=== PATIENT | male | born 1965 | race Caucasian/White ===

== ENCOUNTER → 2016-09-02 | Outpatient (CLI) | payer BC, OTHER ==
[~2016-09-02] VITALS: Ht 180.3 cm; Wt 79.4 kg
[~2016-09-02] MED LIST: GLUCOSAMINE HC500 MG PO; MULTI VITAMIN1 EACH PO
--- NOTE | ~2016-09-02 | HPC ---
[facility] [address] [place] [address] PAIN MANAGEMENT CONSULTATION Name: PRAVEENA CRISTINA Room #: REG [facility] Carolyn.#: [id number] Admission: 09/02/16 Attend Phys: Kian Rubin DO Discharge: Date of : 65 Report #: [id number] THIS REPORT FOR: //name// CC: Sonia Rubin The patient is a very pleasant 41-year-old gentleman, seen in consultation at the request of Dr. Busby for evaluation of pain, neck, right shoulder and arm. The patient notes pain has been present for about 6 weeks or more without antecedent trauma and overuse. Notes it is from the base of the skull down either side, but about 75% of the times on the right side, exacerbated with sleeping and sitting. He gets some relief when he stands. He has tried Aleve [id number] with little efficacy, stretching, walking and TENS unit. Has some weakness in the right arm with use, paresthesia going into index, long and middle finger. Describes continuous, burning, sharp, and stabbing pain, rates anywhere from 9-10 on a 0-10 visual analog scale. Incidentally, he has had similar symptoms in the low back, all treated with epidural injections off and on over the past decade or more. REVIEW OF SYSTEMS: Complete review of systems attached to chart and gone over with the patient. He is , does not smoke, drink alcohol to excess. He enjoyed remarkably good health, a 12 point review of systems is essentially unremarkable. Takes glucosamine and multiple vitamins. Other than axial back issues and lumbar radicular symptoms, he has had one compound fracture in his left foot in 1985 and review of systems is otherwise unremarkable. 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 He has continued to work despite pain. Pain impact score, however, is quite high, averaging 58/60. PHYSICAL EXAMINATION: GENERAL: Reveals a 5 feet 11 inches and 170 pounds gentleman. VITAL SIGNS: Stable, blood pressure is 118/84, pulse 74, and respirations 16. BMI is 24.4 kilograms per meter squared. NEUROLOGIC: Cranial nerves 2-12 are grossly intact. HEENT: Pupils are equal, reactive to light and accommodation. Extraocular muscles are intact. EXTREMITIES: Cervical range of motion is full with positive Lhermitte's radiating to the right arm. Right deltoid and biceps strength is slightly diminished compared to the left. Subjective paresthesia into the thumb, index, and long finger. Negative Tinel's. Deep tendon reflexes are generally preserved. Skin integument is intact, some tenderness in the splenius capitis and trapezius muscles, right greater than left. No discrete trigger points are noted. HEART: Regular rate and rhythm without murmur. LUNGS: Clear to auscultation. [facility] [address] [place] [address] PAIN MANAGEMENT CONSULTATION Name: PRAVEENA CRISTINA Room #: REG SHEILA Resendiz#: [id number] Admission: 09/02/16 Attend Phys: Kian Rubin DO Discharge: Date of : 65 Report #: [id number] ABDOMEN: Unremarkable. NEUROLOGIC: Gait is tandem. Lower extremity strength is preserved. SKIN: Integument is intact. DIAGNOSTIC STUDIES: The only diagnostic study available is an old x-ray of the cervical spine from 07/23/2010. I personally reviewed those images, they are fairly unremarkable, they are starting to lose some height in the inferior cervical basis. ASSESSMENT: 1. Symptomatic cervical radiculopathy with clinical exam having failed conservative therapy. 2. History of lumbar radiculopathy. RECOMMENDATIONS: 1. Continue Aleve cydk-nbn-[id number]. 2. Cervical epidural injection under fluoroscopy today. 3. Follow up in 3-4 weeks for reevaluation, if he has no significant improvement in baseline pain, we will need to get an MRI to ensure they were not overlooking any surgical pathology. Thank you for allowing me to participate in the patient's care. I will keep you abreast of his progress. PROCEDURE: Cervical epidural steroid injection under fluoroscopy. PROCEDURE NOTE: After written and informed consent was obtained including risk of dural puncture, spinal cord trauma, paralysis and increased pain, the patient was taken to the fluoroscopy suite and placed in the prone position, with appropriate abdominal bolstering, neck was flexed, palms under the thighs. Skin was prepped with ChloraPrep. Sterile draping was applied. Skin wheal with 1% Xylocaine was raised. A 22-gauge 3-1/2 inch epidural Tuohy needle was placed via a midline approach at the C7-T1 interspace, advanced under biplanar fluoroscopy using continuous loss of resistance. With appropriate loss of resistance at the expected depth on lateral view, the glass loss of resistance syringe was disconnected. A low volume extension tubing was connected to the needle and a 5 mL syringe. Negative aspiration for cerebrospinal fluid or blood was noted. A 1 mL of Omnipaque was injected which showed spread within the epidural space on biplanar fluoroscopy. This was followed with 80 mg of triamcinolone plus 1 mL of 1.5% preservative Xylocaine. Needle was withdrawn to the interspinous ligament, 0.5 mL of Xylocaine was used to flush the needle. The needle was then completely withdrawn. The area was cleansed. Band-Aid was applied. The patient was allowed to move off the procedure table and ambulated [facility] [address] [place] [address] PAIN MANAGEMENT CONSULTATION Name: PRAVEENA CRISTINA MIREYA Room #: REG CLI Martín#: [id number] Admission: 09/02/16 Attend Phys: Kian Rubin DO Discharge: Date of : 65 Report #: [id number] to the recovery room, monitored for an appropriate period of time, discharged in good and stable condition. By: [id number] Kian Rubin DO /nt
[2016-09-02 13:09] VITALS: BP 118/84
== END ==
LOC: PAIN 07:43
DX: M54.12 Radiculopathy, cervical region (principal)

== ENCOUNTER → 2016-10-04 | Outpatient (CLI) | payer BC, OTHER ==
[~2016-10-04] VITALS: Ht 180.3 cm; Wt 77.6 kg
[~2016-10-04] MED LIST changes: +HYDROCODONE-AP1 EAC6 PO
--- NOTE | ~2016-10-04 | HPC ---
[facility] [place] [address] PAIN MANAGEMENT CONSULTATION Name: PRAVEENA CRISTINA Room #: REG [facility] Martín#: [id number] Admission: 10/04/16 Attend Phys: Kian Rubin DO Discharge: Date of : 65 Report #: [id number] THIS REPORT FOR: //name// CC: Sonia Rubin SUBJECTIVE: The patient is a very pleasant 51-year-old gentleman, prior seen in the pain clinic in consultation on 09/02/2016, diagnosed with symptomatic cervical radiculopathy, given 1 cervical epidural injection at that time. He returns to pain clinic today noting 75% improvement of baseline pain; however, still some radicular symptoms in the neck, right shoulder and arm. Cervical range of motion shows positive Lhermitte's, does show some sharp, continuous, burning pain up to 9 on a 0-10 visual analog scale at its worst, though again ongoing relief continues. He had 90% initially, but about 75% ongoing. ASSESSMENT: Symptomatic cervical radiculopathy by clinical exam and history. RECOMMENDATIONS: 1. Repeat epidural injection under fluoroscopy today. 2. We will order an MRI of the cervical spine. If in 1 week, he still has ongoing radicular symptoms, we will need to take a look and make sure we are not overlooking any surgically correctable pathology. PROCEDURE: Cervical epidural steroid injection under fluoroscopy. PROCEDURE NOTE: After written and informed consent was obtained including risk of dural puncture, spinal cord trauma, paralysis and increased pain, the patient was taken to the fluoroscopy suite and placed in the prone position, with appropriate abdominal bolstering, neck was flexed, palms under the thighs. Skin was prepped with ChloraPrep. Sterile draping was applied. Skin wheal with 1% Xylocaine was raised. A 22-gauge 3-1/2 inch epidural Tuohy needle was placed via a midline approach at the C7-T1 interspace, advanced under biplanar fluoroscopy using continuous loss of resistance. With appropriate loss of resistance at the expected depth on lateral view, the glass loss of resistance syringe was disconnected. A low volume extension tubing was connected to the needle and a 5 mL syringe. Negative aspiration for cerebrospinal fluid or blood was noted. A 1 mL of Omnipaque was injected which showed spread within the epidural space on biplanar fluoroscopy. This was followed with 80 mg of triamcinolone plus 1 mL of 1.5% preservative Xylocaine. Needle was withdrawn to the interspinous ligament, 0.5 mL of Xylocaine was used to flush the needle. The needle was then completely withdrawn. The area was cleansed. Band-Aid was applied. The patient was allowed to move off the procedure table and ambulated [address] [address] PAIN MANAGEMENT CONSULTATION Name: PRAVEENA CRISTINA Room #: REG SHEILA Resendiz#: [id number] Admission: 10/04/16 Attend Phys: Kian Rubin DO Discharge: Date of : 65 Report #: [id number] to the recovery room, monitored for an appropriate period of time, discharged in good and stable condition. <ELECTRONICALLY SIGNED> By: Kian Rubin DO 10/07/16 0657 1554 03 Kian Rubin DO /nt
[2016-10-04 14:13] VITALS: BP 133/77
== END | disposition home or self-care (01) ==
LOC: PAIN 10-03 12:55
DX: M54.12 Radiculopathy, cervical region (principal)

== ENCOUNTER → 2016-10-11 | Outpatient (CLI) | payer BC, OTHER | LOC: MRI 07:19 | DX: M47.892 Other spondylosis, cervical region (principal) ==

== ENCOUNTER → 2017-04-17 | Outpatient (CLI) | payer BC, OTHER ==
[~2017-04-17] VITALS: Ht 180.3 cm; Wt 74.6 kg
[~2017-04-17] MED LIST changes: +ALEVE220 MG PO; +CYMBALTA30 MG PO; +FLEXERIL PO
--- NOTE | ~2017-04-17 | HPC ---
[facility] [address] [employer] [address] PAIN MANAGEMENT CONSULTATION Name: PRAVEENA CRISTINA Room #: REG [facility] Resendiz#: [id number] Admission: 04/17/17 Attend Phys: Kian Rubin DO Discharge: Date of : 65 Report #: [id number] THIS REPORT FOR: //name// CC: Sonia Rubin The patient is a 51-year-old gentleman. He was prior treated for symptomatic cervical radiculopathy. I did 2 cervical epidural injections, in August and September. He was seen in followup in October, having ongoing right shoulder, arm symptoms of paresthesia going into the thumb, index, and long finger. We continued the patient on conservative therapy at that time. I ordered an MRI which was accomplished 10/11/2016. It does note C5-C6 to have bilateral neural foraminal narrowing. C6-C7 similarly shows bilateral neural foraminal narrowing with a slight asymmetric right-sided posterior ridging likely osteophytic with a tiny right paramedian osteophyte complex at C7-T1. The patient returns to pain clinic today, we had a prolonged visit discussing therapeutic options. He actually has 2 discrete issues, he has pain in the right trapezius, deltoid, triceps and somewhat in the distal aspect of the subscapularis. There are knots that occasionally come up and wake patient from pain, exquisite myofascial type pain component. It appears that the paresthesia actually into his thumb, index and long finger, which I had prior thought was a C6-C7 radiculopathy (coming from neural foraminal narrowing at C5-C6 and C6-C7) may actually be more of a carpal tunnel or cubital tunnel symptoms. The patient has pain in the shoulders exacerbated with some movement. Again, it does also wake the patient from sleep. Paresthesia which includes continuous, burning, numbness, tingling in the fingers occasionally is altered with neck position, but this too seems to be exacerbated with activity. PHYSICAL EXAMINATION: Shows a 51-year-old gentleman, BMI is 22.9 kilograms per meter squared. Vital signs stable as noted in the EMR. Subjective pain score is 7-10 on VAS. Cervical range of motion is full with negative Lhermitte's at this time. Does have tenderness and some palpable trigger points in the right trapezius, deltoid, tricep and subscapularis insertion, though the range of motion in the shoulder and arm is adequate. Strength is good. The deep tendon reflexes are preserved. Tinel's is modestly positive on the right. Does have some tenderness over the right lateral epicondyle with a component of "tennis elbow" (medial epicondylitis) seems to be exacerbated with resistance to extension of the right wrist. ASSESSMENT: Cervical radiculopathy by history, component of a myofascial pain in the shoulder girdle and C6 and C7 radiculopathy versus carpal tunnel entrapment, etiology of neuropathic pain. RECOMMENDATIONS: We will refer to Dr. Devorah Ngo for EMG. The patient and his know Dr. Ngo socially. We will also start the patient on low dose [address] [address] PAIN MANAGEMENT CONSULTATION Name: SHARAGASPERSEBPRAVEENA MIREYA Room #: REG [facility] Resendiz#: [id number] Admission: 04/17/17 Attend Phys: Kian Rubin DO Discharge: Date of : 65 Report #: [id number] Cymbalta 30 mg 1 a day for 4 weeks to see if this affects the myofascial pain component. We will renew hydrocodone. The patient uses a 5/325 tablet, I gave him 45 tablets in October. This lasted nearly 5 months. He uses this very infrequently. We will continue Flexeril, he uses this at bedtime on a nondaily basis. Discharged in good and stable condition after a moderately prolonged visit, greater than 25 minutes were spent with the patient. Over 50% of time spent reviewing therapeutic options and counseling the patient. By: [id number] Kian Rubin DO /nt
[2017-04-17 14:39] VITALS: BP 133/74
== END ==
LOC: PAIN 07:18
DX: M54.16 Radiculopathy, lumbar region (principal); M79.1 Myalgia

== ENCOUNTER → 2017-07-24 | Outpatient (CLI) | payer BC, OTHER ==
[~2017-07-24] VITALS: Ht 180.3 cm; Wt 72.9 kg
--- NOTE | ~2017-07-24 | HPC ---
[facility] [place] [address] [place] [address] PAIN MANAGEMENT CONSULTATION Name: PRAVEENA CRISTINA Room #: REG [facility] Martín#: [id number] Admission: 07/24/17 Attend Phys: Kian Rubin DO Discharge: Date of : 65 Report #: [id number] THIS REPORT FOR: //name// CC: Sonia Rubin DATE OF SERVICE: 07/24/2017 The patient is a 51-year-old gentleman seen on 04/17/2017. He had prior been treated for cervical radiculopathy with 2 cervical epidural injections in 08/2016 and 09/2016. Last visit, he was having some ongoing symptoms in the right arm with paresthesia into his thumb and index finger. He also had second discrete pain issue which is myofascial pain with trigger points in the trapezius, deltoid, and triceps (right side) and little bit along the infrascapularis. Returns to pain clinic today. I started him on Cymbalta 30 mg at bedtime. He feels that this medicine is "a homerun". Notes the right side pain has significantly improved. However, recently started have a little bit of muscle spasm in the left trapezius and latissimus dorsi and medial to the left scapularis. I referred him for EMG regarding the paresthesia in the right arm. EMG obtain 05/08/2017 did note right median motor distal latency being prolonged. Possible right C7 radiculopathy. No evidence for median or ulnar neuropathy was noted. The patient notes the radicular symptoms are actually fairly nominal at this point. He is very pleased with the Cymbalta. PHYSICAL EXAMINATION: Shows a 51-year-old gentleman, BMI is 22.4 kg/m2. Vital signs are stable as noted in the EMR. Subjective pain score is 7-10, but all in the left upper back with muscle spasm. Physical range of motion shows cervical range of motion good. Some diffuse tenderness in the splenius capitis and trapezius on the left side. A little bit in the upper thoracic paravertebral muscles. Upper extremity strength, however, is preserved. ASSESSMENT: Myofascial pain, history of cervical radiculopathy, latter symptoms relatively quiescent. RECOMMENDATION: Long discussion with the patient today about therapeutic option. We have elected to continue Cymbalta 30 mg a day with the caveat that I will write a prescription for b.i.d. usage, 60 tablets. We will have him use 2 tablets daily until the left myofascial pain resolves and then have him drop back to 1 a day. If symptoms recur, we will simply continue at 60 mg. Otherwise, continue 30 mg of Cymbalta. I did renew Flexeril 10 mg to be used p.r.n. and hydrocodone 5/325, dispensed 90 tablets. His prior prescription for [address] [address] PAIN MANAGEMENT CONSULTATION Name: JONNIEPRAVEENA MIREYA Room #: REG SHEILA Resendiz#: [id number] Admission: 07/24/17 Attend Phys: Kian Rubin DO Discharge: Date of : 65 Report #: [id number] sixty 5 mg hydrocodone tablets has lasted 4 months. He uses this judiciously. Discharged in good and stable condition. Follow up simply as needed. <ELECTRONICALLY SIGNED> By: Kian Rubin DO 07/25/17 0944 1615 04 Kian Rubin DO /nt
[2017-07-24 13:46] VITALS: BP 130/80
== END ==
LOC: PAIN 07:09
DX: M79.1 Myalgia (principal); M54.12 Radiculopathy, cervical region

== ENCOUNTER → 2017-12-17 | Outpatient (CLI) | payer BC, OTHER ==
[~2017-12-17] VITALS: Ht 180.3 cm; Wt 73.6 kg
[~2017-12-17] MED LIST changes: +BACLOFEN 10MG T10 MG PO; +CYMBALTA60 MG PO
--- NOTE | ~2017-12-17 | HPC ---
[facility] [place] [place] [address] PAIN MANAGEMENT CONSULTATION Name: PRAVEENA CRISTINA Room #: REG [facility] MSalvador.#: [id number] Admission: 12/17/17 Attend Phys: Adrian Rubin DO Discharge: Date of : 65 Report #: [id number] THIS REPORT FOR: //name// CC: Adrian Busby MD DATE OF SERVICE: 12/17/2017 REFERRING PHYSICIAN: Sonia Busby M.D. CHIEF COMPLAINT: Neck pain and bilateral upper extremity pain and paresthesias. HISTORY OF PRESENT ILLNESS: As you know, the patient is a 52-year-old male treated for cervical radiculopathy secondary to changes noted in the cervical region such as the changes at the C7 level. Majority of the findings in the cervical spine are minor. He has been treated with Cymbalta and has had cervical epidural injections, both of which have provided good benefit. He now is experiencing left neck pain after a recent fall. He returns today in followup visit for refills of Canyon for which he takes 2-3 tablets on bad days or sometimes no tablets per day and to adjust for muscle relaxant, he has accessed specifically of our services to provide Valium. He returns to discuss this option. ALLERGIES: No known drug allergies. CURRENT MEDICATIONS: Duloxetine 60 mg once a day, Flexeril 10 mg 3 times a day, hydrocodone 5/325 one tab p.o. q. 6 hours p.r.n. for pain, naproxen 220 mg 3 times a day and glucosamine chondroitin 500 mg 3 times a day. SOCIAL HISTORY: The patient denies tobacco use. Denies IV or illicit drug. Admits to 5 alcoholic beverages per week. He is a global sales manager . He is working, not receiving workmen's compensation, unaccompanied today. IMAGING DATA: No new imaging available. PHYSICAL EXAMINATION: VITAL SIGNS: Blood pressure 108/78, pulse 78 and respiratory rate 19 and unlabored. The patient is 100% on room air. Height 5 feet 11 inches tall, weight 162.2 pounds and BMI calculated 22.6. GENERAL: Well-developed, well-nourished, well-hydrated, 52-year-old male. He appears his stated age. He is placing pain score today, 8/10. HEENT: Normocephalic and atraumatic. Pupils equal, round and reactive to light. Extraocular muscles are intact. EXTREMITIES: Show no clubbing, no cyanosis and no edema. MUSCULOSKELETAL: Upper extremity strength is 5/5, intact to light touch from C5 [facility] [address] [place] [address] PAIN MANAGEMENT CONSULTATION Name: PRAVEENA CRISTINA Room #: REG SHEILA Resendiz#: [id number] Admission: 12/17/17 Attend Phys: Adrian Rubin DO Discharge: Date of : 65 Report #: [id number] through T1 dermatomes. Deep tendon reflexes symmetrical at biceps, brachialis and triceps. There are multiple tender points, no specific trigger points and myofascial symptoms noted throughout the paraspinal musculature of cervical spine. ASSESSMENT: 1. Myofascial pain. 2. Suspected cervical radiculopathy. 3. Displacement of cervical intervertebral disk. 4. Cervical spondylosis. 5. Chronic intractable pain. PLAN: 1. The patient returns today in followup visit requesting refill on medications. He has requested of our services who provided specifically Valium or another benzodiazepine. Advised the patient at this time these medications are not helpful in pain management clinic and will not be provided specifically with concomitant use of opioids. This is an extremely high risk in individuals for overdose and will not be provided. I did advise the muscle spasming medications are available. He is currently on cyclobenzaprine, is not finding much of an effect. I would recommend from here baclofen. If this is ineffective, methocarbamol. Benzodiazepines should not be added to an individual taking opioids. 2. The patient was provided RX of baclofen 10 mg dose 1 tab p.o. t.i.d. and I have given the patient #90. I have advised the patient if the 10 mg dose is not effective, he can do 15 mg 3 times a day or up to 20 mg. I would not recommend it jumped to 20 mg unless he is absolutely needing that level of medication. 3. The patient was provided prescription of Canyon 5/325 one tab p.o. b.i.d. to t.i.d. p.r.n. pain and I have given the patient #90 tablets, no refills. The patient was advised to utilize medication only as directed. He is not to call for early refills or any changes in medication therapy. 4. The patient and I did discuss his reported diagnosis of cervical radiculopathy. I have reviewed the patient's imaging study does not show a significant nerve root impingement or central canal stenosis that would be consistent with his symptoms. I believe his symptoms are more related to myofascial symptoms but further evaluation may be necessary and I would recommend at this point EMG of the upper extremities bilaterally. We will consider this option if his symptoms do not improve. His current pain distribution does not correlate to the findings on his MRI examination. Further evaluation might be necessary. 5. We will see the patient back in followup visit on an as needed basis. <ELECTRONICALLY SIGNED> By: Adrian Rubin DO 12/18/17817 1240 2110 Adrian Rubin DO /nt
[2017-12-17 10:32] VITALS: BP 108/78
== END ==
LOC: PAIN 07:32
DX: M47.812 Spondylosis without myelopathy or radiculopathy, cervical region (principal); M50.223 Other cervical disc displacement at C6-C7 level; G89.4 Chronic pain syndrome; M79.1 Myalgia

== ENCOUNTER → 2018-04-22 | Outpatient (CLI) | payer BC, OTHER ==
[~2018-04-22] VITALS: Ht 167.6 cm; Wt 77.1 kg
--- NOTE | ~2018-04-22 | HPC ---
[facility] [address] [place] [address] PAIN MANAGEMENT CONSULTATION Name: SHARAPRAVEENA SALES MIREYA Room #: REG SHEILA Resendiz#: [id number] Admission: 04/22/18 Attend Phys: Autumn Graf Discharge: Date of : 65 Report #: [id number] THIS REPORT FOR: //name// CC: Autumn Moodyfer Qi DATE OF SERVICE: 04/22/2018 CHIEF COMPLAINT: Neck pain, bilateral upper extremity pain and paresthesias. HISTORY OF PRESENT ILLNESS: This is a very pleasant 52-year-old gentleman who returns to the pain clinic today for discussion regarding his cervical radiculopathy that radiates into his right arm greater than left, been treated with cervical epidurals in the past and most recently Cymbalta. The patient returns today, questions regarding his Cymbalta therapy. He tells me that his pain score is 4 today, which is a very average score for his neck and arm pain. He tells me that he feels like he is very well controlled on his current medication regime. He does take some baclofen when he does have spasms, he is not in need of that medication today. He tells me that is much more beneficial than Flexeril that he had been on in the past. The patient tells me he rarely takes hydrocodone that we had been prescribing for him and is not in need of that medication today either. He was wondering today, has questions about how long he should stay on his Cymbalta versus the benefits of going off it or weaning down to a lower dose. Those were all discussions for him today. ALLERGIES: No known drug allergies. CURRENT MEDICATIONS: Baclofen 10 mg as needed, hydrocodone 5/325 as needed, duloxetine 60 mg daily, naproxen 220 mg as needed, multivitamin daily, glucosamine 500 mg daily. PQRS: The patient has some osteoarthritic changes in his back. Denies rheumatoid arthritis. Height is 5 feet 6 inches, weight is 170, BMI is 27.5. Vital signs: Blood pressure 121/87, pulse is 87, respirations 18, oxygen sat is 96. Pain score is 4/10. Denies dizziness. Does not need help walking or standing. He has not fallen in the last 3 months. He is not on a blood thinner or does not take any hypertension medicines. His opioid therapy is greater than 6 weeks; therefore, an opioid signed contract is on the chart. His risk assessment tool is low and his functional assessment is 58/70. The patient denies recreational drug use. Does not smoke and does not drink alcohol. PHYSICAL EXAMINATION: GENERAL: This is a well-developed, well-nourished, well-hydrated 52-year-old gentleman who appears his stated age. He is placing a pain score today of 4/10. HEENT: Normocephalic, atraumatic. Pupils equal, round and reactive to light. Extraocular muscles are intact. [address] [address] PAIN MANAGEMENT CONSULTATION Name: PRAVEENA CRISTINA Room #: REG SHEILA Resendiz#: [id number] Admission: 04/22/18 Attend Phys: Autumn Graf Discharge: Date of : 65 Report #: [id number] EXTREMITIES: No clubbing, no cyanosis, no edema. MUSCULOSKELETAL: Upper extremity strength judged to be 5/5, intact to light touch from C5 through T1 dermatomes. Complains of mild tenderness, points in his right upper arm and upper neck in the cervical region. ASSESSMENT: 1. Myofascial pain. 2. Suspected cervical radiculopathy. 3. Displacement of cervical intervertebral disk. 4. Cervical spondylosis. 5. Chronic intractable pain. We reviewed the fact that opiate medications are being used to provide analgesia adequate to support activities of daily living, not attempting to achieve a specific pain score on the 0-10 Visual Analog Scale. The current opiate medications are providing sufficient analgesia to allow the patient to participate in activities of daily living. The patient is not exhibiting any aberrant behavior suggestive of drug diversion. The patient is not having any adverse reactions to medications. The patient is not suffering from daytime somnolence or mental acuity changes. The patient is managing opiate-induced constipation with appropriate wlqa-oio-hcjvlql agents and dietary considerations. The patient was counseled on concern for caution with operating a motor vehicle while using opiate medications. A physical exam was performed and the patient's functional status was evaluated. All patients with back pain were advised against the bed rest greater than 4 days and were advised to return to normal activities. Pain score assessment was noted and the treatment plan was reviewed with the patient. All current medications, both prescribed and OTC were reviewed and reconciled on the electronic medical record. Tobacco screening was accomplished and smoking cessation was advised when indicated. BMI was noted and diet/exercise modification was recommended for all patients following outside normal parameters. I reviewed with the patient today their responsibilities to safeguard prescription medications, reviewed their responsibility to utilize medications only as prescribed by the physician. They are to seek and receive pain medications only from 1 physician group ( [facility]). They are to use 1 pharmacy and keep the clinic informed if they change pharmacies. Their responsibilities include making followup visits in a timely fashion and to avoid abrupt discontinuation of medication usage. Their responsibilities further include bringing their medications (bottles from the pharmacy with residual pills) to the visit for possible confirmation of pill counts and the patient understands it is their responsibility to submit to random drug screens to ensure both that the medications prescribed are present, and that no other controlled substances are present. All prescriptions provided today were [facility] [address] [place] [address] PAIN MANAGEMENT CONSULTATION Name: PRAVEENA CRISTINA Room #: REG Beck Resendiz#: [id number] Admission: 04/22/18 Attend Phys: Autumn Graf Discharge: Date of : 65 Report #: [id number] generated electronically. PLAN: 1. The patient returns today for followup visit to discuss medication managements. He tells me that he had recently learned that Cymbalta is an antidepressant. He was not aware that he was taking a antidepressant. He tells me that he thought the Cymbalta was for his nerve pain in his neck and arm. I did discuss with him about the Cymbalta having those properties and it is approved for both reasons, that is why Dr. Kian Rubin had started him on that. The patient finds that it is very helpful, had showed up in the clinic on Friday needing a refill of his medications. We did not want him to abruptly stop this, so medicines were called in at that point. The patient tells me he has noticed that when he does not take it, that he does have an increase in his pain in neck and arm. The patient feels like his baclofen is very beneficial and rarely takes hydrocodone. He was wondering about decreasing to 30 mg of Cymbalta in the future if need be. We did discuss weaning parameters telling him that if his pain is consistent 2 or below, that he could call us, we would call in 30 mg tablets of Cymbalta to see how he does with that. If his pain returned, then he would go back to the 60s. If it is continued at the low level, then he would take 1 tablet every other day and then wean off it, but right now, the patient will stay on the Cymbalta 60 mg daily. 2. The patient does not need any prescriptions refilled today since we called in medicines on 04/17 for him. He will call when needed and I have authorized a refill of his Cymbalta. I explained to him if he needs refill of other medications in the future, he does need to schedule an appointment. The patient is agreeable with this plan of care. The patient will be seen in 3 months or as needed basis. Care given today under the collaboration with Dr. Adrian Rubin. <ELECTRONICALLY SIGNED> By: Autumn Graf 04/23/18 0838 [id number] Autumn Graf /demetria
[2018-04-22 10:00] VITALS: BP 121/87
== END ==
LOC: PAIN 09:22
DX: M79.18 Myalgia, other site (principal); M47.892 Other spondylosis, cervical region; G89.4 Chronic pain syndrome

== ENCOUNTER → 2018-07-06 | Outpatient (CLI) | payer BC, OTHER ==
[~2018-07-06] VITALS: Ht 167.6 cm; Wt 76.1 kg
[2018-07-06 08:53] VITALS: BP 131/90
--- NOTE | 2018-07-06 09:05 | NUR ---
Pain Clinic Assessment: 1. History of Osteoarthritis: NONE History of Rheumatoid Arthritis: NONE 2. Height: 5 ft. 6 in. 167.6 cm. Weight: 167.8 lb. oz. 76.114 kg. Patient's BMI: 27.1 3. Vital Signs: BP: 131/90 Pulse: 78 Resp: 14 Temp: 02 Sat: 97 ECG Mon: 4. Pain Intensity: 5-6 5. Fall Risk: Dizziness: Y Needs help standing or walking: N Fallen in the last 3 months: N Fall risk comments: 6. Patient on Blood Thinner: None 7. History of Hypertension: N 8. Opioid Therapy greater than 6 weeks: Y Opiate Contract Signed: 07/24/17 9. Risk Assessment Tool Provided: 3-low 10. Functional Assessment Tool: 11. Recreational Drug Use: Never Drug Type: Tobacco Use: Never Smoker Tobacco Type: Amount or Packs/day: How Many Years: Alcohol Use: No Frequency: Quant:
--- NOTE | 2018-07-07 08:51 | HPC ---
[facility] [address] [place] [address] PAIN MANAGEMENT CONSULTATION Name: PRAVEENA CRISTINA Room #: REG SHEILA Resendiz#: [id number] Admission: 07/06/18 ������������������ Attend Phys: Autumn Graf Discharge: ������������������ Date of : 65 Report #: [id number] THIS REPORT FOR: //name// CC: Autumn Moodyfer Qi DATE OF SERVICE: 07/06/2018 CHIEF COMPLAINT: Neck pain, bilateral upper extremity pain and paresthesias. HISTORY OF PRESENT ILLNESS: This is a very pleasant 52-year-old gentleman who returns to the pain clinic today for medication refill for his cervical radiculopathy that radiates into his right arm greater than his left, into his thumb. The patient tells me that the Cymbalta is doing quite well. He feels numbness and tingling in his thumb and down his arm when he has not taken his medication. He tells me it is very well controlled as long as he takes his Cymbalta on a daily basis. Occasionally on bad days, he says after he wakes in the morning, he may need a hydrocodone and then later in the day, a baclofen to help control his pain on his bad days. Those days are very few. Hydrocodone script has lasted him about 7 months for 90 pills, so he tells that very sparingly that he uses that. He tells me that he would like a refill today of his Cymbalta. He denies any problems with constipation or daytime sleepiness. ALLERGIES: No known drug allergies. CURRENT LIST OF MEDICATIONS: Baclofen 10 mg p.r.n., hydrocodone 5/325 p.r.n., Cymbalta 60 mg daily, Aleve 220 mg daily, multivitamin daily, glucosamine 500 mg 3 times a day. PQRS: 1. The patient has some arthritic changes in his back. Denies any rheumatoid arthritis. 2. Height is 5 feet 6 inches, weight is 167, BMI is 27. 3. Vital signs: Blood pressure 131/90, pulse is 78, respirations 14, oxygen sat is 97. 4. Pain score 5-6/10. 5. Fall risks: Complains of some dizziness. He denies needing help walking or standing. Has not fallen in the last 3 months. 6. The patient is not on any blood thinners, does not take any meds for hypertension. 7. Opioid therapy is greater than 6 weeks; therefore, an opioid signed contract is on the chart. 8. Risk assessment tool is low. His functional assessment is 37/70. 9. Recreational drug use: He denies. He is not a smoker and does not drink alcohol. [address] [address] PAIN MANAGEMENT CONSULTATION Name: PRAVEENA CRISTINA [id number] Admission: 07/06/18 ������������������ Attend Phys: Autumn Graf Discharge: ������������������ Date of : 65 Report #: [id number] We did check the prescription monitoring system. The patient is filling from Dr. Adrian Rubin. Last fill was 12/18/2017. We will check a drug screen on the patient, though he does take his medicines very sparingly for his narcotics. PHYSICAL EXAMINATION: GENERAL: This is a well-developed, well-nourished, well-hydrated 52-year-old gentleman who appears his stated age, placing his pain score at 5/10 today. HEENT: Normocephalic, atraumatic. Extraocular eye muscles are intact. EXTREMITIES: No clubbing, no cyanosis, no edema. Does complain of slight numbness in his right thumb. Upper extremity strength judged to be 5/5, intact to light touch from C5 through T1. Complains of right shoulder tenderness today. ASSESSMENT: 1. Myofascial pain. 2. Suspected cervical radiculopathy. 3. Displacement of cervical intervertebral disk. 4. Cervical spondylosis. 5. Chronic intractable pain. We reviewed the fact that opiate medications are being used to provide analgesia adequate to support activities of daily living, not attempting to achieve a specific pain score on the 0-10 Visual Analog Scale. The current opiate medications are providing sufficient analgesia to allow the patient to participate in activities of daily living. The patient is not exhibiting any aberrant behavior suggestive of drug diversion. The patient is not having any adverse reactions to medications. The patient is not suffering from daytime somnolence or mental acuity changes. The patient is managing opiate-induced constipation with appropriate qlit-twd-ifvdeca agents and dietary considerations. The patient was counseled on concern for caution with operating a motor vehicle while using opiate medications. A physical exam was performed and the patient's functional status was evaluated. All patients with back pain were advised against the bed rest greater than 4 days and were advised to return to normal activities. Pain score assessment was noted and the treatment plan was reviewed with the patient. All current medications, both prescribed and OTC were reviewed and reconciled on the electronic medical record. Tobacco screening was accomplished and smoking cessation was advised when indicated. BMI was noted and diet/exercise modification was recommended for all patients following outside normal parameters. I reviewed with the patient today their responsibilities to safeguard prescription medications, reviewed their responsibility to utilize medications only as prescribed by the physician. They are to seek and receive pain medications only from 1 physician group ( [facility]). They are to use [address] [facility] [place] [address] PAIN MANAGEMENT CONSULTATION Name: JONNIEPRAVEENA Room #: REG [facility]..#: [id number] Admission: 07/06/18 ������������������ Attend Phys: Autumn YAIR Graf Discharge: ������������������ Date of : 65 Report #: [id number] pharmacy and keep the clinic informed if they change pharmacies. Their responsibilities include making followup visits in a timely fashion and to avoid abrupt discontinuation of medication usage. Their responsibilities further include bringing their medications (bottles from the pharmacy with residual pills) to the visit for possible confirmation of pill counts and the patient understands it is their responsibility to submit to random drug screens to ensure both that the medications prescribed are present, and that no other controlled substances are present. All prescriptions provided today were generated electronically. PLAN: 1. We discussed treatment options with the patient today. The patient tells me that he needs a refill of his Cymbalta. He tells me that it is very helpful in controlling his pain. He did try to decrease it, but finds 60 mg is very beneficial in controlling his pain and would like refills today. We will refill: A. Cymbalta 60 mg, #30, x 5 refills. This should last him 6 months. B. Hydrocodone 5/325, #90, script was given today as well. In the past, this had lasted him at least 7 months. The patient uses this very sparingly; therefore, we will see him back in about 6 months for a refill of this medication as well. C. Baclofen. The patient continues to take sparingly as well as his hydrocodone. No scripts needed for this today. The patient has not filled his refills from his November script. 2. The patient seen in collaboration today and Dr. Miguel was present for part of the visit with this patient. He will be seen in [address] Adrian Rubin. ��������������������������������������������� <ELECTRONICALLY SIGNED> ���������������������������������������� By: Autumn Graf ��������������������������������������������� 07/07/18 0851 [id number] [id number] Autumn Graf /demetria
== END ==
LOC: PAIN 06:47
DX: M47.812 Spondylosis without myelopathy or radiculopathy, cervical region (principal); G89.4 Chronic pain syndrome; M79.18 Myalgia, other site; M50.20 Other cervical disc displacement, unspecified cervical region; Z79.899 Other long term (current) drug therapy

== ENCOUNTER → 2019-01-19 | Outpatient (CLI) | payer BC, OTHER ==
[~2019-01-19] VITALS: Ht 167.6 cm; Wt 78.4 kg
[~2019-01-19] MED LIST changes: +LIORESAL 10 MG10 MG PO; +NORCO 5-325 TA1 EAC1 PO
[2019-01-19 09:07] VITALS: BP 125/84
--- NOTE | 2019-01-19 09:25 | NUR ---
Pain Clinic Assessment: 1. History of Osteoarthritis: DENIES History of Rheumatoid Arthritis: DENIES 2. Height: 5 ft. 6 in. 167.6 cm. Weight: 172.8 lb. oz. 78.382 kg. Patient's BMI: 27.9 3. Vital Signs: BP: 125/84 Pulse: 70 Resp: 14 Temp: 02 Sat: 98 ECG Mon: 4. Pain Intensity: 4 NECK 5. Fall Risk: Dizziness: N Needs help standing or walking: N Fallen in the last 3 months: N Fall risk comments: 6. Patient on Blood Thinner: None 7. History of Hypertension: N 8. Opioid Therapy greater than 6 weeks: Y Opiate Contract Signed: 07/24/17 9. Risk Assessment Tool Provided: 3-low 10. Functional Assessment Tool: 11. Recreational Drug Use: Never Drug Type: Tobacco Use: Never Smoker Tobacco Type: Amount or Packs/day: How Many Years: Alcohol Use: Yes Frequency: Daily Quant: BEER
--- NOTE | 2019-01-20 08:42 | HPC ---
[facility] [place] [address] PAIN MANAGEMENT CONSULTATION Name: PRAVEENA CRISTINA Room #: REG [facility] Martín#: [id number] Admission: 01/19/19 Attend Phys: Autumn Graf Discharge: Date of : 65 Report #: [id number] THIS REPORT FOR: //name// CC: Autumn Moodyfer Qi DATE OF SERVICE: 01/19/2019 CHIEF COMPLAINT: Neck pain, bilateral upper extremity pain and paresthesias. HISTORY OF PRESENT ILLNESS: This is a very pleasant 53-year-old gentleman who returns to the pain clinic today for refill of his medications for his cervical radiculopathy. He is rating the pain score 4/10 today, mostly in his neck and bilateral shoulders, though he does occasionally have low back pain. This is intermittent and tingly, aching pain, worse with activity or turning his head, but his medications are very beneficial. He tells me he is doing extremely well, taking his Cymbalta on a daily basis and occasionally he will have a flareup that requires him to have a hydrocodone and possibly a baclofen. He tells me he has only missed one day work in the last year, which is a great improvement for him over the years past. He has also not required an epidural injection since starting the Cymbalta. He would like refills of this medication today. ALLERGIES: No known drug allergies. CURRENT LIST OF MEDICATIONS: Cymbalta 60 mg daily, hydrocodone 5/325 sparingly, Aleve p.r.n., multivitamin and glucosamine and baclofen 10 mg. PQRS: 1. He has arthritic changes in his cervical and lumbar spine. Denies any rheumatoid arthritis. 2. Height is 5 feet 6 inches, weight is 172, BMI is 27. 3. Vital signs 125/84, pulse is 70, respirations 14, oxygen sat is 98. Pain score is 4/10. 4. Fall risk. Denies dizziness, does not need help walking or standing, has not fallen in the last 3 months. 5. The patient is not on any blood thinners or medicine for hypertension. 6. Opioid therapy is greater than 6 weeks; therefore, an opioid signed contract is on the chart. His risk assessment tool is low. Functional assessment is 37/70. 7. Recreational drug use, he denies. He is not a smoker and occasionally drinks alcohol beverages a beer every day. According to the prescription monitoring system, the patient is filling appropriately for his medications that he takes very sparingly. We will collect a random drug screen on this patient today. [address] [address] PAIN MANAGEMENT CONSULTATION Name: JONNIEPRAVEENA GOMES Room #: REG SHEILA Resendiz#: [id number] Admission: 01/19/19 Attend Phys: Autumn Graf Discharge: Date of : 65 Report #: [id number] PHYSICAL EXAMINATION: GENERAL: This is a well-developed, well-nourished, well-hydrated 53-year-old gentleman who appears his stated age, placing his current pain score at 4/10 today. HEENT: Normocephalic, atraumatic. Extraocular muscles are intact. EXTREMITIES: No clubbing, no cyanosis, no edema. Has slight tenderness in his cervical spine that radiates into his bilateral shoulders followed in the C5 through T1 is intact to light touch. His upper extremity strength judged to be 5/5 in all major muscle groups. ASSESSMENT: 1. Myofascial pain. 2. Cervical radiculopathy. 3. Displacement of cervical intervertebral disk. 4. Cervical spondylosis. 5. Chronic intractable pain. We reviewed the fact that opiate medications are being used to provide analgesia adequate to support activities of daily living, not attempting to achieve a specific pain score on the 0-10 Visual Analog Scale. The current opiate medications are providing sufficient analgesia to allow the patient to participate in activities of daily living. The patient is not exhibiting any aberrant behavior suggestive of drug diversion. The patient is not having any adverse reactions to medications. The patient is not suffering from daytime somnolence or mental acuity changes. The patient is managing opiate-induced constipation with appropriate znbz-xvo-ojvexal agents and dietary considerations. The patient was counseled on concern for caution with operating a motor vehicle while using opiate medications. A physical exam was performed and the patient's functional status was evaluated. All patients with back pain were advised against the bed rest greater than 4 days and were advised to return to normal activities. Pain score assessment was noted and the treatment plan was reviewed with the patient. All current medications, both prescribed and OTC were reviewed and reconciled on the electronic medical record. Tobacco screening was accomplished and smoking cessation was advised when indicated. BMI was noted and diet/exercise modification was recommended for all patients following outside normal parameters. I reviewed with the patient today their responsibilities to safeguard prescription medications, reviewed their responsibility to utilize medications only as prescribed by the physician. They are to seek and receive pain medications only from 1 physician group ([facility]). They are to use 1 pharmacy and keep the clinic informed if they change pharmacies. Their [facility] [address] [place] [address] PAIN MANAGEMENT CONSULTATION Name: PRAVEENA CRISTINA Room #: REG CLBeck Resendiz#: [id number] Admission: 01/19/19 Attend Phys: Autumn Graf Discharge: Date of : 65 Report #: [id number] responsibilities include making followup visits in a timely fashion and to avoid abrupt discontinuation of medication usage. Their responsibilities further include bringing their medications (bottles from the pharmacy with residual pills) to the visit for possible confirmation of pill counts and the patient understands it is their responsibility to submit to random drug screens to ensure both that the medications prescribed are present, and that no other controlled substances are present. All prescriptions provided today were generated electronically. PLAN: 1. We discussed treatment options with the patient today. He feels that the Cymbalta is very beneficial in controlling his pain. Scripts given today for 60 mg, #60 with 5 additional refills. 2. Baclofen 10 mg t.i.d., #90 with one additional refill. The patient takes this very sparingly. 3. Hydrocodone 5/325, #90. This lasts the patient at least 6 months since he takes it on a very sparingly as needed basis when his pain intensifies. 4. The patient is seen in collaboration with Dr. Adrian Rubin today and he has seen the patient as well. The patient will return in 3 months. <ELECTRONICALLY SIGNED> By: Autumn Graf 01/20/19 0842 1023 40 Autumn Graf /demetria
== END ==
LOC: PAIN 06:53
DX: M47.22 Other spondylosis with radiculopathy, cervical region (principal); M50.10 Cervical disc disorder with radiculopathy, unspecified cervical region; G89.29 Other chronic pain; M79.622 Pain in left upper arm; M79.18 Myalgia, other site

== ENCOUNTER → 2019-07-21 | Outpatient (CLI) | payer OTHER ==
[~2019-07-21] VITALS: Ht 170.2 cm; Wt 74.8 kg
[2019-07-21 12:47] VITALS: BP 129/80
--- NOTE | 2019-07-21 12:51 | NUR ---
Pain Clinic Assessment: 1. History of Osteoarthritis: DENIES History of Rheumatoid Arthritis: DENIES 2. Height: 5 ft. 7 in. 170.2 cm. Weight: 165.0 lb. oz. 74.844 kg. Patient's BMI: 25.8 3. Vital Signs: BP: 129/80 Pulse: 77 Resp: 12 Temp: 02 Sat: 98 ECG Mon: 4. Pain Intensity: 2 5. Fall Risk: Dizziness: N Needs help standing or walking: N Fallen in the last 3 months: N Fall risk comments: 6. Patient on Blood Thinner: None 7. History of Hypertension: N 8. Opioid Therapy greater than 6 weeks: Y Opiate Contract Signed: 07/24/17 9. Risk Assessment Tool Provided: 3-low 10. Functional Assessment Tool: 11. Recreational Drug Use: Never Drug Type: Tobacco Use: Never Smoker Tobacco Type: Amount or Packs/day: How Many Years: Alcohol Use: Yes Frequency: Daily Quant: BEER
--- NOTE | 2019-07-22 10:45 | HPC ---
[facility] [place] [address] PAIN MANAGEMENT CONSULTATION Name: PRAVEENA CRISTINA Room #: REG SHEILA Martín#: [id number] Admission: 07/21/19 Attend Phys: Autumn Graf Discharge: Date of : 65 Report #: [id number] THIS REPORT FOR: cc: Sonia Busby MD, Jennifer S. MD Hocker, Amanda CNS ~ CC: NOHEMY CARTER DATE OF SERVICE: 07/21/2019 CHIEF COMPLAINT: Neck pain, bilateral upper extremity pain and paresthesias. HISTORY OF PRESENT ILLNESS: This is a 53-year-old gentleman who returns to the Pain Clinic today for refill of his medications. We see him on an average of every 6 months due to his infrequent opioid use. He does find Cymbalta very beneficial in controlling his neck pain that radiates into his bilateral shoulders. He occasionally also suffers from low back pain. Today, he is reporting a pain score of 2/10. It is intermittent and has a tingling component per his report. It is worse with activity. He feels the medications and massage are beneficial in controlling his pain. He does report today that he had some Flexeril from a previous prescription that we had given him. He had taken that for a few days to see if that alleviate his muscles spasms more effectively than the baclofen. He felt that it did and would like to rotate back to that medicine that he had been on in the past from our clinic. ALLERGIES: No known drug allergies. CURRENT LIST OF MEDICATIONS: Hydrocodone 5/325 p.r.n., baclofen 10 mg t.i.d. p.r.n., Cymbalta 60 mg daily, naproxen p.r.n., multivitamin and glucosamine. PQRS: 1. He has arthritic changes in his cervical and lumbar spine. Denies any rheumatoid arthritis. 2. Height is 5 feet 7 inches, weight is 165, BMI is 25. 3. Vital signs, BP 129/80, pulse is 77, respirations 12, oxygen sat is 98. 4. Pain score is 02/10. 5. Denies dizziness, does not need help walking or standing, has not fallen in the last 3 months. 6. The patient is not on any blood thinners, but does not take medicine for hypertension. 7. Opioid therapy is greater than 6 weeks; therefore, an opioid signed contract is on the chart. Risk assessment tool is low. Functional assessment is 37/70. 8. Recreational drug use in the past, marijuana use. He denies tobacco use and occasionally drinks alcohol. According to the prescription monitoring system, the patient is filling his [facility] [address] [place] [address] PAIN MANAGEMENT CONSULTATION Name: PRAVEENA CRISTINA Room #: REG [facility] Martín#: [id number] Admission: 07/21/19 Attend Phys: Autumn Graf Discharge: Date of : 65 Report #: [id number] medicines appropriately. Last fill was in December that was when he was here for a visit for opioids, currently for his morphine mEq, he is less than 5 MMEs per day. There is a recent drug screen from his last visit, did show positive for THC. We did question the patient about this today. He states he has used it in the past periodically. He is not interested in having a green card for medicinal purposes when we discussed taking it for medical reasons. He reports he would rather have hydrocodone and will stop his marijuana use. PHYSICAL EXAMINATION: GENERAL: This is a well-developed, well-nourished, well-hydrated 53-year-old gentleman who appears his stated age, placing his current pain score at 02/10 today. HEENT: Normocephalic, atraumatic. Extraocular eye muscles are intact. EXTREMITIES: No clubbing, no cyanosis, no edema. MUSCULOSKELETAL: He has tenderness in his cervical spine that radiates into his shoulders, greater on the left than the right, following the C5 distribution. He is intact to light touch. His upper extremity strength judged to be 5/5 in all major muscle groups. He has tenderness in his lumbosacral region as well. ASSESSMENT: 1. Myofascial pain. 2. Cervical radiculopathy. 3. Displacement of cervical intervertebral disk. 4. Cervical spondylosis. 5. Chronic intractable pain. We reviewed the fact that opiate medications are being used to provide analgesia adequate to support activities of daily living, not attempting to achieve a specific pain score on the 0-10 Visual Analog Scale. The current opiate medications are providing sufficient analgesia to allow the patient to participate in activities of daily living. The patient is not exhibiting any aberrant behavior suggestive of drug diversion. The patient is not having any adverse reactions to medications. The patient is not suffering from daytime somnolence or mental acuity changes. The patient is managing opiate-induced constipation with appropriate ozns-mrv-epspfxj agents and dietary considerations. The patient was counseled on concern for caution with operating a motor vehicle while using opiate medications. PLAN: 1. We discussed treatment options with the patient today. The patient finds his Cymbalta very beneficial in controlling his myofascial pain as well as his radicular symptoms. We will electronically send Cymbalta 60 mg, #30 with 5 additional refills to his pharmacy. 2. The patient is finding the baclofen had not been as effective as it had been in the past controlling his muscle spasms in his neck and shoulders. He had a previous prescription from us for Flexeril. He had taken a few of those since [facility] [address] [place] [address] PAIN MANAGEMENT CONSULTATION Name: PRAVEENA CRISTINA Room #: REG SHEILA Resendiz#: [id number] Admission: 07/21/19 Attend Phys: Autumn Graf Discharge: Date of : 65 Report #: [id number] our last visit and found those beneficial. He is requesting a rotation back to that muscle relaxant to see if it will continue to aid in his myofascial pain. Scripts sent electronically for Flexeril 10 mg, #60 with 2 refills. This medicine should last him a total of 6 months according to our calculations based on his usage. 3. We discussed his positive urine drug screen for marijuana. I explained to him, we cannot continue opioid medications if he has using marijuana that is not illegal unless he wishes to obtain his green card for medicinal marijuana. He is not interested in that presently. He reports he will stop using any marijuana and will continue hydrocodone use. Today, we will give him a short prescription of hydrocodone 5/325, #20 pills. We will have him return within 3 weeks to obtain another urine specimen for random drug screen. The patient at that time will see Dr. Nohemy Carter for his appointment. 4. The patient is agreeable with this plan of care. 5. The patient is seen today in collaboration with Dr. Nohemy Carter. <ELECTRONICALLY SIGNED> By: Autumn Graf 07/22/19 [id number] [id number] Autumn Graf /nt
== END ==
LOC: PAIN 06:52
DX: M50.10 Cervical disc disorder with radiculopathy, unspecified cervical region (principal); M47.22 Other spondylosis with radiculopathy, cervical region; M79.641 Pain in right hand; M79.18 Myalgia, other site; G89.29 Other chronic pain; F11.20 Opioid dependence, uncomplicated; Z79.84 Long term (current) use of oral hypoglycemic drugs; Z79.899 Other long term (current) drug therapy

== ENCOUNTER → 2019-08-11 | Outpatient (CLI) | payer OTHER ==
[~2019-08-11] VITALS: Ht 180.3 cm; Wt 77.1 kg
--- NOTE | ~2019-08-11 | HPC ---
[facility] [address] [place] [address] PAIN MANAGEMENT CONSULTATION Name: PRAVEENA CRISTINA Room #: REG SHEILA Carolyn.#: [id number] Admission: 08/11/19 Attend Phys: Adrian Rubin DO Discharge: Date of : 65 Report #: [id number] THIS REPORT FOR: cc: Sonia Busby MD, Jennifer S. MD Johnson, James E. DO ~ CC: Adrian Busby MD DATE OF SERVICE: 08/11/2019 REFERRING PHYSICIAN: Sonia Busby MD CHIEF COMPLAINT: Neck pain, bilateral lower extremity pain with paresthesias. HISTORY OF PRESENT ILLNESS: As you know, the patient is a very pleasant 53-year-old male returning to our clinic for medication management. He feels that the combination of Cymbalta at 60 mg once a day is working beneficially for pain control. He is utilizing p.r.n. Flexeril 10 mg dose, no more than twice a day for muscle spasming effects and denies any side effects of sleepiness, disorientation and confusion with this medication. He also takes an occasional hydrocodone for which we provided #20 tablets at our last visit one month ago. He returns today in followup visit for medication management. He feels medications are working beneficially for pain control. He is denying any side effects with their use. ALLERGIES: No known drug allergies. CURRENT MEDICATIONS: Hydrocodone 5/325 one tab p.o. q. 8 hours p.r.n. for pain, cyclobenzaprine 10 mg dose 1 tab p.o. b.i.d. p.r.n. pain, Cymbalta 60 mg once a day, naproxen p.r.n., multivitamin 1 tab per day, glucosamine chondroitin 1 tab per day. IMAGING: No new imaging available. PHYSICAL EXAMINATION: VITAL SIGNS: Blood pressure 123/91, pulse is 73, respiratory rate 18 and unlabored. The patient is 99% on room air. Height 5 feet 11 inches tall, weight 170 pounds, BMI calculated 23.7. GENERAL: A well-developed, well-nourished, well-hydrated 53-year-old male appearing stated age, pain is rated today 3/10. HEENT: Normocephalic, atraumatic. Pupils are equal, round, reactive to light. Extraocular muscles are intact. EXTREMITIES: Show no clubbing, no cyanosis, and no edema. MUSCULOSKELETAL: The patient has upper extremity strength that is equal and [address] [address] PAIN MANAGEMENT CONSULTATION Name: PRAVEENA CRISTINA Room #: REG [facility].#: [id number] Admission: 08/11/19 Attend Phys: Adrian Rubin DO Discharge: Date of : 65 Report #: [id number] symmetrical 5/5, intact to light touch from C5 through T1 dermatomes. Cervical provocation testing is met with increasing pain. There is tenderness to palpation over the cervical area without spinous process tenderness. Spurling's test positive on the left. ASSESSMENT: 1. Cervical radiculopathy. 2. Displacement of cervical intervertebral disk with radiculopathy. 3. Cervical spondylosis with radicular symptoms. 4. Myofascial pain. 5. Chronic intractable pain. PLAN: 1. The patient returns today in followup visit requesting refill on medications. He feels medications are working beneficially for pain control. He is extremely pleased with the duloxetine addition to his therapy as this has provided good and prolonged benefit. He rarely uses hydrocodone and relies only on muscle relaxants on a p.r.n. basis. He is very pleased with response to treatment that he is currently on and wishes to continue with this therapy. 2. We reviewed the fact that opiate medications are being used to provide analgesia adequate to support activities of daily living, not attempting to achieve a specific pain score on the 0-10 Visual Analog Scale. The current opiate medications are providing sufficient analgesia to allow the patient to participate in activities of daily living. The patient is not exhibiting any aberrant behavior suggestive of drug diversion. The patient is not having any adverse reactions to medications. The patient is not suffering from daytime somnolence or mental acuity changes. The patient is managing opiate-induced constipation with appropriate frej-ont-aoyutol agents and dietary considerations. The patient was counseled on concern for caution with operating a motor vehicle while using opiate medications. A physical exam was performed and the patient's functional status was evaluated. All patients with back pain were advised against the bed rest greater than 4 days and were advised to return to normal activities. Pain score assessment was noted and the treatment plan was reviewed with the patient. All current medications, both prescribed and OTC were reviewed and reconciled on the electronic medical record. Tobacco screening was accomplished and smoking cessation was advised when indicated. BMI was noted and diet/exercise modification was recommended for all patients following outside normal parameters. I reviewed with the patient today their responsibilities to safeguard prescription medications, reviewed their responsibility to utilize medications only as prescribed by the physician. They are to seek and receive pain medications only from 1 physician group ([facility]). They are to use 1 pharmacy and keep the clinic informed if they change pharmacies. Their [address] [place] [address] PAIN MANAGEMENT CONSULTATION Name: PRAVEENA CRISTINA Room #: REG [facility]..#: [id number] Admission: 08/11/19 Attend Phys: Adrian Rubin DO Discharge: Date of : 65 Report #: [id number] responsibilities include making followup visits in a timely fashion and to avoid abrupt discontinuation of medication usage. Their responsibilities further include bringing their medications (bottles from the pharmacy with residual pills) to the visit for possible confirmation of pill counts and the patient understands it is their responsibility to submit to random drug screens to ensure both that the medications prescribed are present, and that no other controlled substances are present. All prescriptions provided today were generated electronically. 3. The patient was provided a prescription of hydrocodone 5/325 one tab p.o. q. 8 hours p.r.n. for pain. I have given the patient #20 tablets a month worth of medication. The patient will take this on an as needed basis for pain control. He is not to rely on this medication prophylactically. 4. The patient was provided refill prescription of his duloxetine 60 mg dose 1 tab p.o. q.a.m. I have given the patient #30 with 2 refills 3 months' worth of medication. 5. The patient was provided prescription of Flexeril 10 mg dose 1 tab p.o. b.i.d., #60 tablets with 2 refills, 3 months' worth of medication. 6. We will see the patient back in followup visit in 3 months for medication management. We wish him well and hope that he states healthy and remains free of COVID virus. We will see him back in followup visit. By: [id number] Adrian Rubin, /nt
[2019-08-11 12:43] VITALS: BP 123/91
--- NOTE | 2019-08-11 12:53 | NUR ---
Pain Clinic Assessment: 1. History of Osteoarthritis: DENIES History of Rheumatoid Arthritis: DENIES 2. Height: 5 ft. 11 in. 180.3 cm. Weight: 170.0 lb. oz. 77.112 kg. Patient's BMI: 23.7 3. Vital Signs: BP: 123/91 Pulse: 73 Resp: 18 Temp: 02 Sat: 99 ECG Mon: 4. Pain Intensity: 3 5. Fall Risk: Dizziness: N Needs help standing or walking: N Fallen in the last 3 months: N Fall risk comments: 6. Patient on Blood Thinner: None 7. History of Hypertension: N 8. Opioid Therapy greater than 6 weeks: Y Opiate Contract Signed: 07/24/17 9. Risk Assessment Tool Provided: 3-low 10. Functional Assessment Tool: 11. Recreational Drug Use: Never Drug Type: Tobacco Use: Never Smoker Tobacco Type: Amount or Packs/day: How Many Years: Alcohol Use: Yes Frequency: Quant:
== END ==
LOC: PAIN 08:43
DX: M50.10 Cervical disc disorder with radiculopathy, unspecified cervical region (principal); M47.22 Other spondylosis with radiculopathy, cervical region; M79.604 Pain in right leg; M79.605 Pain in left leg; R20.2 Paresthesia of skin; M79.18 Myalgia, other site; G89.29 Other chronic pain; Z79.899 Other long term (current) drug therapy

== ENCOUNTER → 2019-08-31 | Outpatient (CLI) | payer OTHER ==
[~2019-08-31] VITALS: Ht 180.3 cm; Wt 80.6 kg
--- NOTE | ~2019-08-31 | HPC ---
[facility] [address] [place] [address] PAIN MANAGEMENT CONSULTATION Name: PRAVEENA CRISTINA Room #: REG [facility] Carolyn.#: [id number] Admission: 08/31/19 Attend Phys: Adrian Rubin DO Discharge: Date of : 65 Report #: [id number] THIS REPORT FOR: cc: Sonia Busby MD, Jennifer S. MD Johnson, James E. DO ~ CC: Adrian Busby MD DATE OF SERVICE: 08/31/2019 CHIEF COMPLAINT: Neck pain, right upper extremity pain and paresthesias, bilateral lower extremity pain with paresthesias. 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 He is now experiencing increased right upper extremity pain and paresthesias. The patient denies injury or trauma that may have led to symptom reoccurrence. He was doing very well with the Cymbalta therapy, taking 60 mg once a day with good efficacy, but this has since reduced in its efficacy with the increased activity of tree trimming. He returns today in followup visit to discuss potential adjustments in medication management. The patient was seen in our clinic on 08/11/2019, where he was given continuation of the duloxetine and a low dose of hydrocodone. He was given 20 tablets at that visit as he did not follow through with his urine drug screen requested by nurse practitioner, Autumn Graf. He returns today to discuss readjustments in his hydrocodone therapy. ALLERGIES: No known drug allergies. CURRENT MEDICATIONS: Hydrocodone 5/325 one tab every 8 hours p.r.n. for pain, cyclobenzaprine 10 mg b.i.d. p.r.n. muscle spasm, Cymbalta 60 mg once a day, naproxen 220 mg 1-2 tabs twice a day p.r.n., multivitamin 1 tab per day, glucosamine chondroitin 1 tab per day. IMAGING: No new imaging available. SOCIAL HISTORY: The patient denies tobacco, IV or illicit drug use. He utilizes one alcoholic beverage per day. He is employed. He is working, not receiving workmen's compensation, unaccompanied today. PHYSICAL EXAMINATION: VITAL SIGNS: Blood pressure 121/86, pulse 72, respiratory rate 16 and unlabored. The patient is 100% on room air. Height 5 feet 11 inches [place], [place] [address] PAIN MANAGEMENT CONSULTATION Name: PRAVEENA CRISTINA Room #: REG [facility].#: [id number] Admission: 08/31/19 Attend Phys: Adrian Rubin DO Discharge: Date of : 65 Report #: [id number] weight 177.6 pounds, BMI calculated 24.8. GENERAL: Well-developed, well-nourished, well-hydrated 53-year-old male appearing stated age, pain is rated today 6/10. HEENT: Normocephalic, atraumatic. Pupils equal, round, reactive to light. Speech fluent. EXTREMITIES: Show no clubbing, no cyanosis, and no edema. MUSCULOSKELETAL: Upper extremity strength is symmetrical 5/5. He is intact to light touch from C5 through T1 dermatomes though reports possible tactile changes along the C6 dermatome on the right. Cervical provocation testing is met with slight increase in pain. Spurling's test is equivocal on the right. ASSESSMENT: 1. Cervical radiculopathy. 2. Displacement of cervical intervertebral disk with radiculopathy. 3. Cervical spondylosis with radiculopathy. 4. Myofascial pain. 5. Chronic intractable pain. PLAN: 1. The patient returns today in followup visit to discuss the possibility of increasing Cymbalta. He has had recurrence of cervical radicular symptoms involving the right upper extremity. We have reviewed the patient's 2017 imaging study, which only shows minor changes inconsistent with the patient's distribution of symptoms. We did discuss this today at this visit and have advised that if his symptoms continue, we would recommend reimaging the cervical spine to determine if a change has occurred and to discuss the possibility of having the patient undergo EMG of the right upper extremity to determine if this is truly related to the cervical region or more of a brachial plexopathy, which is consistent with the patient's symptom reoccurrence while doing significant activities above his head, specifically trimming trees. The patient is going to consider his options in this case. He reports continued efficacy with the Cymbalta except for this loss of pain control with the activity of tree trimming. He is going to increase his Cymbalta at 90 mg for the next couple of days to determine if he gains benefit. If he needs further refills of this medication he can contact our clinic and we will provide them to a 90 mg tablet dosing. 2. The patient and I had a very long discussion about recent urine drug screen, which showed positive for substances that are not prescribed. He was advised at that visit when the review of the urine drug screen was made that he would have to return for a repeat urine drug screen, which he did not attend. He was given only 20 tablets of the hydrocodone with the understanding that he would return. He returned nearly 1 month later where he was seen by myself. I provided another 20 tablets and advised a urine drug screen would be necessary. Again, he did not return for that urine drug screen. He returns today to discuss medications. He states he is taking hydrocodone 5/325 no more than 1-2 a day and typically receives 90 tablets. We have advised the patient at this time [address] [address] PAIN MANAGEMENT CONSULTATION Name: PRAVEENA CRISTINA Room #: REG [facility].#: [id number] Admission: 08/31/19 Attend Phys: Adrian Rubin DO Discharge: Date of : 65 Report #: [id number] that we would be willing to provide the refill medication with the understanding that at any time he may get a phone call requesting a urine drug screen. These urine drug screens are intended to be randomized to be able to monitor the patient to determine appropriate use of therapy. The patient is understanding. 3. The patient was provided a prescription of hydrocodone/acetaminophen 5/325 one tab p.o. q. 8 hours p.r.n. for pain. I have given a total of #90 tablets with the understanding that this should last up to 3 months' worth of therapy. There will not be early refills nor further adjustments in this treatment. 4. We will see the patient back in followup visit for medication management in 3 months. Again, there is a possibility that he may receive a phone call to undergo urine drug screen for randomized testing prior to that visit. By: [id number] Adrian Rubin DO /nt
[2019-08-31 08:15] VITALS: BP 121/86
--- NOTE | 2019-08-31 08:27 | NUR ---
Pain Clinic Assessment: 1. History of Osteoarthritis: DENIES History of Rheumatoid Arthritis: DENIES 2. Height: 5 ft. 11 in. 180.3 cm. Weight: 177.6 lb. oz. 80.559 kg. Patient's BMI: 24.8 3. Vital Signs: BP: 121/86 Pulse: 72 Resp: 16 Temp: 02 Sat: 100 ECG Mon: 4. Pain Intensity: 6 5. Fall Risk: Dizziness: N Needs help standing or walking: N Fallen in the last 3 months: N Fall risk comments: 6. Patient on Blood Thinner: None 7. History of Hypertension: N 8. Opioid Therapy greater than 6 weeks: Y Opiate Contract Signed: 07/24/17 9. Risk Assessment Tool Provided: 3-low 10. Functional Assessment Tool: 11. Recreational Drug Use: Never Drug Type: Tobacco Use: Never Smoker Tobacco Type: Amount or Packs/day: How Many Years: Alcohol Use: Yes Frequency: Daily Quant: BEER
== END ==
LOC: PAIN 06:43
DX: M47.22 Other spondylosis with radiculopathy, cervical region (principal); M50.20 Other cervical disc displacement, unspecified cervical region; M25.511 Pain in right shoulder; R20.2 Paresthesia of skin; M79.18 Myalgia, other site; G89.29 Other chronic pain

== ENCOUNTER → 2020-01-19 | Outpatient (CLI) | payer OTHER ==
[~2020-01-19] VITALS: Ht 180.3 cm; Wt 80.2 kg
[~2020-01-19] MED LIST changes: +NORCO 5-325 TA1 EAC2 PO
--- NOTE | ~2020-01-19 | HPC ---
[facility] [place] [address] PAIN MANAGEMENT CONSULTATION Name: PRAVEENA CRISTINA Room #: REG SHEILA Carolyn.#: [id number] Admission: 01/19/20 Attend Phys: Adrian Rubin DO Discharge: Date of : 65 Report #: [id number] THIS REPORT FOR: cc: Sonia Busby MD, Jennifer S. MD Johnson, James E. DO ~ CC: Adrian Busby MD DATE OF SERVICE: 01/19/2020 REFERRING PHYSICIAN: Sonia Busby MD CHIEF COMPLAINT: Neck pain, bilateral upper extremity pain with paresthesias. HISTORY OF PRESENT ILLNESS: As you know, the patient is a very pleasant 54-year-old male returning to our clinic requesting refill of medications. He is requesting an increase in his Cymbalta as he is beginning to experience increasing neuropathic symptoms once again. He had done very well with previous adjustments taking 60 mg of Cymbalta per day, but unfortunately his symptoms have progressed. He wishes adjustments in medication management today. He is denying side effects to medication at present and wishes refills of his cyclobenzaprine. He takes for muscle spasming. He also would like a refill of his hydrocodone, he takes on p.r.n. basis. He denies any new injury, trauma or any changes in medical history since our last visit. ALLERGIES: No known drug allergies. CURRENT MEDICATIONS: Glucosamine/chondroitin 500/____ mg once a day, multivitamin 1 tab per day, naproxen sodium 220 mg 1 tab every 6 hours p.r.n. for pain, cyclobenzaprine 10 mg q. 12 hours p.r.n. muscle spasms, duloxetine 60 mg p.o. q.a.m., hydrocodone/acetaminophen 5/325 one half tab to 1 tab 3 times a day as needed for pain control. SOCIAL HISTORY: The patient reports himself to be a nonsmoker. He denies IV or illicit drug use. Admits occasional alcohol beverage. He is employed, working, not receiving workmen's compensation, unaccompanied today. IMAGING: No new imaging available. PHYSICAL EXAMINATION: VITAL SIGNS: Blood pressure 137/92, pulse is 70, respiratory rate 14 and unlabored. The patient is 100% on room air. Height 5 feet 11 inches tall, weight 176.8 pounds, BMI calculated 24.7. GENERAL: Well-developed, well-nourished, well-hydrated 54[place] [address] PAIN MANAGEMENT CONSULTATION Name: PRAVEENA CRISTINA Room #: REG CL Martín#: [id number] Admission: 01/19/20 Attend Phys: Adrian Rubin DO Discharge: Date of : 65 Report #: [id number] appearing stated age, pain is rated today around 7/10. HEENT: Normocephalic, atraumatic. Pupils equal, round and reactive. Speech is fluent. EXTREMITIES: Show no clubbing, no cyanosis, no appreciable edema. MUSCULOSKELETAL: Upper extremity strength remains symmetrical 5/5. Muscle bulk and tone is symmetrical in comparing left upper extremity to right. Cervical provocation testing is once again met with increasing pain mainly with rotation and lateral flexion bilaterally. There is moderate restriction of motion to those maneuvers secondary to pain. Spurling's test is positive on the left. Tendinous reflexes at biceps, brachioradialis and triceps equal and symmetrical. ASSESSMENT: 1. Cervical radiculopathy. 2. Displacement of cervical intervertebral disk with radiculopathy. 3. Cervical spondylosis with radiculopathy. 4. Myofascial pain. 5. Chronic intractable pain. PLAN: 1. The patient returns today in followup visit, requesting refill on medications. The patient and I had a long discussion about the use of medications for pain control. He does seem to be doing fairly well with Cymbalta. He wishes further adjustment in the medication as he is beginning to experience recurrence of his radicular pain. I would suggest the following adjustments in medication management today. 2. The patient will increase his Cymbalta from 60 mg in the morning to a 60 mg in the morning dose and a 30 mg afternoon dose. I have provided the patient with a prescription for both the 60 and 30 mg tablets, 30 of each to be taken for neuropathic pain control. Prescription sent via e-scribe to local pharmacy. I did give the patient 5 refills of these medications, total of 6 months' worth of medication. If further escalation in his medication would be necessary, we would recommend a 60 mg tablet in the morning and 60 mg tablet at 1:00 to address his radicular pain if necessary. He will contact our clinic if a new adjustment is required. 3. We reviewed the fact that opiate medications are being used to provide analgesia adequate to support activities of daily living, not attempting to achieve a specific pain score on the 0-10 Visual Analog Scale. The current opiate medications are providing sufficient analgesia to allow the patient to participate in activities of daily living. The patient is not exhibiting any aberrant behavior suggestive of drug diversion. The patient is not having any adverse reactions to medications. The patient is not suffering from daytime somnolence or mental acuity changes. The patient is managing opiate-induced constipation with appropriate [id number] agents and dietary considerations. The patient was counseled on concern for caution with operating a motor vehicle while using opiate medications. [facility] [address] [place] [address] PAIN MANAGEMENT CONSULTATION Name: PRAVEENA CRISTINA Room #: REG [facility] Martín#: [id number] Admission: 01/19/20 Attend Phys: Adrian Rubin DO Discharge: Date of : 65 Report #: [id number] A physical exam was performed and the patient's functional status was evaluated. All patients with back pain were advised against the bed rest greater than 4 days and were advised to return to normal activities. Pain score assessment was noted and the treatment plan was reviewed with the patient. All current medications, both prescribed and OTC were reviewed and reconciled on the electronic medical record. Tobacco screening was accomplished and smoking cessation was advised when indicated. BMI was noted and diet/exercise modification was recommended for all patients following outside normal parameters. 3. I reviewed with the patient today their responsibilities to safeguard prescription medications, reviewed their responsibility to utilize medications only as prescribed by the physician. They are to seek and receive pain medications only from 1 physician group ([facility]). They are to use 1 pharmacy and keep the clinic informed if they change pharmacies. Their responsibilities include making followup visits in a timely fashion and to avoid abrupt discontinuation of medication usage. Their responsibilities further include bringing their medications (bottles from the pharmacy with residual pills) to the visit for possible confirmation of pill counts and the patient understands it is their responsibility to submit to random drug screens to ensure both that the medications prescribed are present, and that no other controlled substances are present. All prescriptions provided today were generated electronically. 4. The patient was provided prescription of hydrocodone/acetaminophen 5/325 one tab p.o. q. 8 hours p.r.n. for pain. I have given the patient of #90 tablets to release today. The patient is to make this last for total of 3 months as he is utilizing these very infrequently. Prescription sent via e-scribe to local pharmacy. 5. The patient was provided refill prescription of cyclobenzaprine 10 mg dose 1 tab p.o. b.i.d. I have given the patient #60 tablets to release today with refills for 3 months. 6. The patient will submit to urine drug screen as part of our monitoring program. He will provide the urine sample today, he can call the next week for the results. He indicates no aberrant findings will be noted in that drug screen. 7. See the patient back in followup visit in 3 months for medication management. By: [id number] Adrian Rubin DO /nt
[2020-01-19 12:50] VITALS: BP 137/92
--- NOTE | 2020-01-19 13:06 | NUR ---
Pain Clinic Assessment: 1. History of Osteoarthritis: DENIES History of Rheumatoid Arthritis: DENIES 2. Height: 5 ft. 11 in. 180.3 cm. Weight: 176.8 lb. oz. 80.196 kg. Patient's BMI: 24.7 3. Vital Signs: BP: 137/92 Pulse: 70 Resp: 14 Temp: 02 Sat: 100 ECG Mon: 4. Pain Intensity: 7 5. Fall Risk: Dizziness: N Needs help standing or walking: N Fallen in the last 3 months: N Fall risk comments: 6. Patient on Blood Thinner: None 7. History of Hypertension: N 8. Opioid Therapy greater than 6 weeks: Y Opiate Contract Signed: 07/24/17 9. Risk Assessment Tool Provided: 3-low 10. Functional Assessment Tool: 11. Recreational Drug Use: Never Drug Type: Tobacco Use: Never Smoker Tobacco Type: Amount or Packs/day: How Many Years: Alcohol Use: Yes Frequency: Quant:
== END ==
LOC: PAIN 06:43
PROVIDERS: ATTEND Anesthesiology Pain Medicine
DX: M50.10 Cervical disc disorder with radiculopathy, unspecified cervical region (principal); M47.22 Other spondylosis with radiculopathy, cervical region; M79.642 Pain in left hand; M79.641 Pain in right hand; M79.10 Myalgia, unspecified site; R20.2 Paresthesia of skin; G89.29 Other chronic pain

== ENCOUNTER → 2020-07-18 | Outpatient (CLI) | payer OTHER ==
[~2020-07-18] VITALS: Ht 180.3 cm; Wt 79.9 kg
[~2020-07-18] MED LIST changes: +DULOXETINE HCL30 MG PO; +DULOXETINE HCL60 MG PO; +NORCO5 PO
[2020-07-18 09:04] VITALS: BP 128/86
--- NOTE | 2020-07-18 09:14 | NUR ---
Pain Clinic Assessment: 1. History of Osteoarthritis: DENIES History of Rheumatoid Arthritis: DENIES 2. Height: 5 ft. 11 in. 180.3 cm. Weight: 176.2 lb. oz. 79.924 kg. Patient's BMI: 24.6 3. Vital Signs: BP: 128/86 Pulse: 62 Resp: 14 Temp: 02 Sat: 100 ECG Mon: 4. Pain Intensity: 5 5. Fall Risk: Dizziness: N Needs help standing or walking: N Fallen in the last 3 months: N Fall risk comments: 6. Patient on Blood Thinner: None 7. History of Hypertension: N 8. Opioid Therapy greater than 6 weeks: Y Opiate Contract Signed: 07/24/17 9. Risk Assessment Tool Provided: 3-low 10. Functional Assessment Tool: 11. Recreational Drug Use: Never Drug Type: Tobacco Use: Never Smoker Tobacco Type: Amount or Packs/day: How Many Years: Alcohol Use: No Frequency: Quant:
--- NOTE | 2020-07-18 14:57 | HPC ---
[facility] [address] [address] PAIN MANAGEMENT CONSULTATION Name: PRAVEENA CRISTINA Room #: REG AMADOBeck Resendiz#: [id number] Admission: 07/18/20 Attend Phys: Autumn Graf Discharge: Date of : 65 Report #: [id number] THIS REPORT FOR: cc: Sonia Busby MD, Jennifer S. MD Hocker,Autumn MAZARIEGOS ~ DATE OF SERVICE: 07/18/2020 CHIEF COMPLAINT: Neck pain, bilateral upper extremity pain and paresthesias. HISTORY OF PRESENT ILLNESS: As you know, this is a pleasant 54-year-old gentleman who returns today for renewal of his medications. The patient is reporting the increase in Cymbalta from 60 mg to 90 mg, has been beneficial in decreasing his neuropathy he experiences in his fingers. He would like to continue this medication. He does report a pain score today of 5/10 and describes it as an intermittent, aching, tingly sensation in his neck and right hand. He believes his pain is worse with prolonged activity, driving and turning his head to the right. Overall, the medications are beneficial and today he is requesting refills of his muscle relaxant and hydrocodone as well. The patient reports taking the hydrocodone very sparingly, but would like an increase to 120 tablets over the 3 months. He reports he has had his COVID vaccine on the of this month. ALLERGIES: No known drug allergies. CURRENT LIST OF MEDICATIONS: Hydrocodone 5/325 p.r.n., Flexeril 10 mg p.r.n., Cymbalta 90 mg in the morning, Naprosyn, multivitamin, and glucosamine. PQRS: 1. He denies any osteo or rheumatoid arthritis. 2. Height is 5 feet 11 inches, weight is 176, BMI is 24. 3. Vital signs; blood pressure 128/86, pulse is 62, respirations 14, oxygen sat is 100%. 4. Pain score is 5/10. 5. Denies dizziness, does not need help walking or standing, has not fallen in the last 3 months. 6. The patient is not on any blood thinners or medicine for hypertension. 7. Opioid therapy is greater than 6 weeks; therefore, an opioid signed contract is on the chart. Risk assessment is low. Functional assessment is 37/70. 8. Recreational drug use, he denies, but has used in the past. He is not a tobacco smoker and does not drink alcohol. According to the prescription monitoring system, he did last fill his opioid medication on 01/18 that we prescribe for him. There is a drug screen on the chart that we had repeated in December that is positive for marijuana. This is the second time, this has been positive and we counseled him at his last visit [address] [address] PAIN MANAGEMENT CONSULTATION Name: PRAVEENA CRISTINA Room #: [facility] [id number] Admission: 07/18/20 Attend Phys: Autumn Graf Discharge: Date of : 65 Report #: [id number] regarding those positive test. PHYSICAL EXAMINATION: GENERAL: This is a well-developed, well-nourished, well-hydrated 54-year-old gentleman who appears his stated age, rating his pain score today at 5/10. HEENT: Normocephalic and atraumatic. Extraocular eye muscles are intact. Speech is fluent. He is wearing a mask. EXTREMITIES: No clubbing, no cyanosis, no edema. MUSCULOSKELETAL: Upper extremity strength is symmetrical. Cervical provocation testing is met with increasing pain when rotated to the right lateral flexion. ASSESSMENT: 1. Cervical radiculopathy. 2. Displacement of cervical intervebral disck with radiculapathy 3. cervical Spondylosis with Radiculopathy. 4. chronic intractable pain. PLAN: 1. We discussed treatment options with the patient today. We will continue him on his Cymbalta 60 mg and 30 mg. The patient is taking both in the morning. Scripts for 30 tablets with 5 additional refills of both these medications. 2. We will continue him on Flexeril 10 mg tablets, #60 with 2 additional refills. The patient does take this on a sparingly basis finds it beneficial when he does have flares, but not needing it every day. 3. We did discuss his hydrocodone prescription. According to the last opioid drug screen that we performed in December, he was positive again for marijuana. He had been told in the past that we would not be able to continue any opioid medications if he was positive for marijuana. He does not have a medical marijuana card. I explained to him that we will wean him off his hydrocodone with this prescription that we give him today for 60 tablets of hydrocodone 5/325. This will be our final prescription for any opioid medications. The patient verbalizes understanding that we will continue to see him every 6 months for his adjunct medication, but no further opioids will be prescribed from this office. Dr. Adrian Rubin would be also willing to provide any injections that he may need. Scripts sent electronically by Dr. Adrian Rubin for his final opioid medication. 4. We will see the patient back in 6 months for renewal of his medications. Time spent with the patient in consultation, reviewing recent studies and clinical notes and physician reports, physical examination, correlation of physical findings of medical documentation to determine possible treatment 17 minutes. Time spent in preparation for appropriate reviewing prescription monitoring reports, reviewing previous records and proposed treatment options, reviewing current medications 8 minutes. [facility] [address] [place] [address] PAIN MANAGEMENT CONSULTATION Name: PRAVEENA CRISTINA Room #: REG SHEILA Resendiz#: [id number] Admission: 07/18/20 Attend Phys: Autumn Graf Discharge: Date of : 65 Report #: [id number] Time spent preparing and sending a lot for his prescriptions with collaborating physician, Dr. Adrian Rubin and documentation of the visit and plan of treatment 5 minutes. Total time spent with the patient 30 minutes. <ELECTRONICALLY SIGNED> By: Autumn Graf 07/18/20 1457 1114 [id number] Autumn Graf /demetria
== END ==
LOC: PAIN 06:50
PROVIDERS: ATTEND Clinical Nurse Specialist Adult Health
DX: M50.10 Cervical disc disorder with radiculopathy, unspecified cervical region (principal); M79.642 Pain in left hand; M79.641 Pain in right hand; R20.2 Paresthesia of skin; M47.26 Other spondylosis with radiculopathy, lumbar region; G89.29 Other chronic pain; Z79.899 Other long term (current) drug therapy; Z88.8 Allergy status to other drugs, medicaments and biological substances

== ENCOUNTER → 2020-12-05 | Outpatient (CLI) | payer OTHER ==
[~2020-12-05] VITALS: Ht 180.3 cm; Wt 80.1 kg
[~2020-12-05] MED LIST changes: +DIAZEPAM 10 MG10 M2 PO
[2020-12-05 12:26] VITALS: BP 121/81
--- NOTE | 2020-12-05 12:46 | NUR ---
Pain Clinic Assessment: 1. History of Osteoarthritis: DENIES History of Rheumatoid Arthritis: DENIES 2. Height: 5 ft. 11 in. 180.3 cm. Weight: 176.6 lb. oz. 80.105 kg. Patient's BMI: 24.6 3. Vital Signs: BP: 121/81 Pulse: 83 Resp: 14 Temp: 02 Sat: 100 ECG Mon: 4. Pain Intensity: 10 5. Fall Risk: Dizziness: Y Needs help standing or walking: N Fallen in the last 3 months: N Fall risk comments: 6. Patient on Blood Thinner: None 7. History of Hypertension: N 8. Opioid Therapy greater than 6 weeks: Y Opiate Contract Signed: 07/24/17 9. Risk Assessment Tool Provided: 3-low 10. Functional Assessment Tool: 11. Recreational Drug Use: Current within past 3 mos Drug Type: THC Tobacco Use: Never Smoker Tobacco Type: Amount or Packs/day: How Many Years: Alcohol Use: Yes Frequency: Weekly Quant: 2-3 DAYS
--- NOTE | 2020-12-06 14:25 | HPC ---
[facility] [place] [address] PAIN MANAGEMENT CONSULTATION Name: PRAVEENA CRISTINA Room #: REG [facility] Carolyn.#: [id number] Admission: 12/05/20 Attend Phys: Autumn Graf Discharge: Date of : 65 Report #: [id number] THIS REPORT FOR: cc: Sonia Busby MD, Jennifer S. MD Hocker, Amanda CNS ~ cc: Adrian Rubin DO, Jennifer Bequette, MD DATE OF SERVICE: 12/05/2020 CHIEF COMPLAINT: Neck pain, bilateral upper extremity pain and paresthesias. HISTORY OF PRESENT ILLNESS: As you know, this is a 55-year-old gentleman who returns today with continued cervical radiculopathy. The patient reports that his pain is increasing since our last visit with him. Today, he is rating his pain a 10/10, located again on the neck radiating down the right shoulder into the right arm and fingers of the thumb, index and mid finger of the right hand. Occasionally he does have left arm pain as well. He reports that it is an aching, sharp, tingling, burning sensation that is worse with activity and turning his head. He is able to do range of motion and stretching every day, which does alleviate some of his discomfort, but he reports that it is becoming more problematic than it have been in the past. He continues his Cymbalta 90 mg daily for neuropathic pain. He is no longer taking hydrocodone from our office as he has chosen to use medical marijuana in place of any opioid medications and we do not provide hydrocodone for medical marijuana patients. The patient also states today that he feels the Flexeril is not as beneficial as it had been in the past, though he does take it very sparingly for increasing muscle tightness in his lower back. ALLERGIES: No known drug allergies. CURRENT LIST OF MEDICATIONS: Diazepam 10 mg at bedtime, Cymbalta 90 mg daily, Flexeril p.r.n., naproxen, multivitamin, and glucosamine. :PQRS 1. 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 Denies rheumatoid arthritis. Height is 5 feet 11 inches, weight is 176. BMI is 24. 2. Vital signs: 121/81, pulse is 83, respirations 14, oxygen sat is 100. 3. Pain score is 10/10. 4. Has slight dizziness, does not need help walking or standing, has not fallen in the last 3 months. 5. The patient is not on any blood thinners or medications for hypertension. 6. Opioid therapy in the past, not currently on. 7. Risk assessment is low. Functional assessment is 37/70. RECREATIONAL DRUG USE: He currently uses medical marijuana. Does not smoke tobacco but inhales marijuana and drinks alcohol daily. [address] [address] PAIN MANAGEMENT CONSULTATION Name: PRAVEENA CRISTINA [facility] #[id number] Admission: 12/05/20 Attend Phys: Autumn Graf Discharge: Date of : 65 Report #: [id number] PHYSICAL EXAMINATION: GENERAL: This is alert and orientated, well-developed, well-nourished 55-year-old gentleman who appears his stated age, rating his pain score today at 10/10. HEENT: Normocephalic, atraumatic. Extraocular eye muscles are intact. He is wearing a mask. Speech is fluent. He is a good historian. EXTREMITIES: No clubbing, no cyanosis, no edema. MUSCULOSKELETAL: Upper extremities strength is symmetrical. Cervical provocation testing is increasing pain when rotating to the right and lateral flexion when compared to the left. He does have pain and tenderness that radiate into his right arm following a C6-C7 dermatomal distribution to his thumb, index and ring finger. lumbarsacral tenderness as well. ASSESSMENT: 1. Cervical radiculopathy. 2. Displacement of cervical intervertebral disk with radiculopathy. 3. Cervical spondylosis with radiculopathy. 4. Chronic intractable pain. 5. Low back pain. PLAN: 1. We discussed treatment options with the patient today. I believe based on his increasing symptoms from his cervical spine radiating to his right arm greater than the left, it may be beneficial to perform another cervical epidural steroid injection. Dr. Kian Rubin had performed these in the past, afforded him at least 90% initial improvement per the report of the patient in 2017 where he did undergo at least 2 epidural injections. Based on his increasing pain, I think it is warranted to try another injection at the C7-T1 epidural space. This will be performed by Dr. Adrian Rubin. We will seek authorization from his insurance company and schedule him after this is approved. The patient understands this and we will await our phone call. The patient does do daily stretching that he has learned in physical therapy and does walk for exercises. 2. We will continue him on his Cymbalta 30 mg tablets, #90 with 1 additional refill, as well as 60 mg tablets, #90 with 1 additional refill, scripts will be sent. This is a total of 6 months of medication that he takes for the neuropathic pain that he does feel is beneficial. 3. The patient does not believe that he needs a refill for his cyclobenzaprine. He does take this very sparingly for muscle spasms in his lower back. He has plenty of this medication currently. 4. We will not continue him on any hydrocodone since he is utilizing medical marijuana for pain control. Time spent with the patient in consultation, reviewing recent studies and clinical notes and physician reports, correlation of findings, and medical [facility] [address] [place] [address] PAIN MANAGEMENT CONSULTATION Name: PRAVEENA CRISTINA Room #: REG SHEILA Resendiz#: [id number] Admission: 12/05/20 Attend Phys: Autumn Graf Discharge: Date of : 65 Report #: [id number] documentation to determine possible treatment options 16 minutes. Time spent preparing for appropriate appointment by reviewing prescription monitoring system and reports, reviewing previous treatment options and current medications is 5 minutes. Time spent preparing and sending prescriptions with collaborating physician, Dr. Adrian Rubin, documentation of visit and plan of treatment is 5 minutes. Total time spent 25 minutes. <ELECTRONICALLY SIGNED> By: Autumn Graf 12/06/20 1425 [id number] Autumn Graf /nt
== END ==
LOC: PAIN 06:46
PROVIDERS: ATTEND Clinical Nurse Specialist Adult Health
DX: G89.29 Other chronic pain (principal); M50.10 Cervical disc disorder with radiculopathy, unspecified cervical region; M47.22 Other spondylosis with radiculopathy, cervical region; Z68.24 Body mass index [BMI] 24.0-24.9, adult; Z79.899 Other long term (current) drug therapy; Z79.891 Long term (current) use of opiate analgesic

== ENCOUNTER → 2021-05-29 | Outpatient (CLI) | payer OTHER ==
--- NOTE | 2021-05-29 10:33 | NUR ---
Pain Clinic Assessment: 1. History of Osteoarthritis: DENIES History of Rheumatoid Arthritis: DENIES 2. Height: ft. in. cm. Weight: lb. oz. kg. Patient's BMI: 3. Vital Signs: BP: Pulse: Resp: Temp: 02 Sat: ECG Mon: 4. Pain Intensity: 8 5. Fall Risk: Dizziness: N Needs help standing or walking: N Fallen in the last 3 months: N Fall risk comments: 6. Patient on Blood Thinner: None 7. History of Hypertension: N 8. Opioid Therapy greater than 6 weeks: Y Opiate Contract Signed: 07/24/17 9. Risk Assessment Tool Provided: 3-low 10. Functional Assessment Tool: 11. Recreational Drug Use: Current within past 3 mos Drug Type: Tobacco Use: Never Smoker Tobacco Type: Amount or Packs/day: How Many Years: Alcohol Use: Yes Frequency: Quant:
== END ==
LOC: PAIN 08:42
PROVIDERS: ATTEND Clinical Nurse Specialist Adult Health
DX: M50.10 Cervical disc disorder with radiculopathy, unspecified cervical region (principal); M47.22 Other spondylosis with radiculopathy, cervical region; G89.29 Other chronic pain; M79.621 Pain in right upper arm; M79.622 Pain in left upper arm; Z79.899 Other long term (current) drug therapy